=== PATIENT | female | born 1990 | race Caucasian/White ===

== ENCOUNTER 2021-03-11 07:15 | Inpatient (IN) | payer OTHER ==
[2021-03-11 08:23] VITALS: BMI 29.9
[2021-03-11 14:48] LABS: COCAINE, UR NEGATIVE (NEGATIVE); METHADONE, UR NEGATIVE (NEGATIVE); OPIATES, URI NEGATIVE (NEGATIVE); PHENCYCLIDINE,URINE NEGATIVE (NEGATIVE); URINE AMPHETAMINES NEGATIVE (NEGATIVE); URINE BARBITURATES NEGATIVE (NEGATIVE); URINE BENZODIAZEPINES NEGATIVE (NEGATIVE)
[2021-03-13 08:53] LABS: BASO % 0.1 % (0-2.0); EOS % 4.4 % (0-4.5); HEMATOCRIT 19.7 % (32.4-45.2); MCH 28.2 pg (25.7-33.7); MCHC 33.1 g/dl (32.0-36.0); MEAN CELL VOLUME 85.1 fl (80-96); MEAN PLT VOLUME 7.8 fl (7.5-11.1); MONO % 5.3 % (3.8-10.2); NEUT % 79.2 % (42.8-82.8); PLATELET COUNT 206 10^3/uL (134-434); RBC 2.31 M/mm3 (3.60-5.2); RDW 13.8 % (11.6-15.6); WHITE BLOOD COUNT 7.6 K/mm3 (4.0-10.0)
[2021-03-13 09:29] LABS: HEMOGLOBIN 6.5 GM/dL (10.7-15.3)
[2021-03-14 11:48] VITALS: BP 108/70; PULSE 90; TEMP 98.1
== END 2021-03-14 14:00 | disposition home or self-care (01) | DRG 540 ==
LOC: JLDR 07:15 → J3W 03-12 02:11
PROVIDERS: ADMIT Specialist; ATTEND Specialist
PROC: 10D00Z1 Extraction of Products of Conception, Low, Open Approach (ICD-10-PCS; principal; 2021-03-12)
DX: O62.2 Other uterine inertia (principal); O62.0 Primary inadequate contractions; Z3A.39 39 weeks gestation of pregnancy; Z37.0 Single live birth; O61.0 Failed medical induction of labor
CPT/HCPCS: 36415; 80053; 80307; 85025; 85027; 85461; 85610; 85730; 86780; 86850; 86870; 86900; 86901; 86902; 86999; 87389; 88307-TC; C9803; U0003; U0005

== ENCOUNTER 2022-07-13 08:34 | Emergency (ER) | payer OTHER ==
[2022-07-13 08:47] VITALS: BMI 25.4
[2022-07-13] MEDS ORDERED: ONDANSETRON 4 MG/2 ML VIAL IVPB ONE (09:35)
[2022-07-13] MEDS ORDERED: SODIUM CHLORIDE 1,000 ML IV ONE ×2 (09:35→10:51)
[2022-07-13] MEDS ORDERED: ONDANSETRON 4 MG/2 ML VIAL ONE (09:38)
[2022-07-13 10:24] LABS: HEMATOCRIT 45.3 % (32.4-45.2); HEMOGLOBIN 15.4 GM/dL (10.7-15.3); MCHC 34.1 g/dl (32.0-36.0); MEAN CELL VOLUME 88.2 fl (80-96); MEAN PLT VOLUME 8.8 fl (7.5-11.1); PLATELET COUNT 242 10^3/uL (134-434); RBC 5.14 M/mm3 (3.60-5.2); RDW 13.6 % (11.6-15.6)
[2022-07-13 10:25] LABS: URINE APPEARANCE TURBID; URINE BILIRUBIN NEGATIVE (NEGATIVE); URINE COLOR YELLOW; URINE GLUCOSE (UA) NEGATIVE (NEGATIVE); URINE KETONE TRACE (NEGATIVE); URINE LEUK ESTERASE NEGATIVE (NEGATIVE); URINE NITRITE NEGATIVE (NEGATIVE); URINE PROTEIN TRACE (NEGATIVE); URINE UROBILINOGEN 0.2 mg/dL (0.2-1.0)
[2022-07-13 10:30] LABS: ALBUMIN 4.2 g/dl (3.4-5.0); CALCIUM 8.9 mg/dL (8.5-10.1)
[2022-07-13 10:33] LABS: CREATININE 0.7 mg/dL (0.55-1.3)
[2022-07-13 10:35] LABS: BILIRUBIN,TOTAL 1.8 mg/dL (0.2-1); TOT PROT 7.7 g/dl (6.4-8.2)
[2022-07-13 10:36] LABS: HCG,QUALITATIVE URINE Negative
[2022-07-13 11:04] LABS: ANISOCYTOSIS 0; HELMET CELLS 0; HOWELL-JOLLY BODIES 0; MACROCYTOSIS 0; OVALOCYTE 0; ROULEAU 0; SICKELED CELLS 0; TARGET CELLS 0; TEAR DROP CELLS 0; TOXIC GRANULATION 0
[2022-07-13 12:11] VITALS: BP 128/76; PULSE 86; RESP 20; TEMP 98.7
== END 2022-07-13 12:29 | disposition home or self-care (01) ==
LOC: JER 08:34
PROC: 3E033GC Introduction of Other Therapeutic Substance into Peripheral Vein, Percutaneous Approach (ICD-10-PCS; principal; 2022-07-13)
PROC: 3E0337Z Introduction of Electrolytic and Water Balance Substance into Peripheral Vein, Percutaneous Approach (ICD-10-PCS; 2022-07-13)
PROC: 3E0337Z Introduction of Electrolytic and Water Balance Substance into Peripheral Vein, Percutaneous Approach (ICD-10-PCS; 2022-07-13)
DX: K52.9 Noninfective gastroenteritis and colitis, unspecified (principal); E86.0 Dehydration; R10.84 Generalized abdominal pain; R19.7 Diarrhea, unspecified; Z20.822 Contact with and (suspected) exposure to COVID-19
CPT/HCPCS: 0241U-QW; 36415; 80053; 81003; 84703; 85025; 99284-25

== ENCOUNTER 2024-06-09 09:00 | Emergency (ER) | payer OTHER ==
[2024-06-09 09:18] VITALS: BP 116/75; PULSE 60; RESP 18; TEMP 99.1; BMI 27.3
== END 2024-06-09 10:29 | disposition home or self-care (01) ==
LOC: JERFT 09:00
DX: J10.1 Influenza due to other identified influenza virus with other respiratory manifestations (principal); R09.81 Nasal congestion; R05.9 Cough, unspecified; R53.81 Other malaise; R50.9 Fever, unspecified
CPT/HCPCS: 0241U-QW; 99283-25